=== PATIENT | female | born 1975 | race Caucasian/White ===

== ENCOUNTER 2017-04-04 14:19 | Emergency (ER) | payer OTHER ==
[~2017-04-04] VITALS: Ht 175.3 cm; Wt 64.4 kg
[~2017-04-04 14:19] MED LIST: ALEV220C2 PO; BACT2CRE TOP; BACT800T5 PO; HIBI4LIQ TOP
[2017-04-04] MEDS ORDERED: AZOTAB2 PO (14:31)
[2017-04-04] MEDS ORDERED: AZO95TAB PO (14:31)
[2017-04-04] MEDS ORDERED: ONDANSETRON 4MG/2ML VIAL (J2405) IV ONE (15:30)
[2017-04-04] MEDS ORDERED: KETOROLAC 30 MG/ML VIAL (J1885) IV ONE (15:30)
[2017-04-04] MEDS ORDERED: NS 1,000 ML IV ONE (15:30)
[2017-04-04 16:27] LABS: BASO % 0.3 % (0.0-1.0); EOS # 0.1 K/mm3 (0.0-0.50); EOS % 0.9 % (0.0-3.0); LARGE UNSTAINED CELL # 0.2 K/mm3 (0.0-0.4); LARGE UNSTAINED CELL % 2.9 % (0.0-4.0); LYMPH % 26.6 % (24.0-44.0); MEAN CORPUSCULAR HEMOGLOBIN 32.7 pg (27.0-33.0); MEAN CORPUSCULAR HGB CONC 33.2 g/dl (32.0-36.5); MEAN CORPUSCULAR VOLUME 98.4 fl (80.0-96.0); MONO # 0.6 K/mm3 (0.0-0.8); MONO % 7.6 % (0.0-5.0); NEUTROPHILS # 4.7 K/mm3 (1.8-7.7); NEUTROPHILS % 61.8 % (36.0-66.0); PLATELET COUNT, AUTOMATED 285 k/mm3 (150-450); RED CELL DISTRIBUTION WIDTH 12.7 % (11.5-14.5); WHITE BLOOD COUNT 7.6 K/mm3 (4.0-10.0)
[2017-04-04 17:02] LABS: ALBUMIN 3.6 GM/DL (3.2-5.2); ALBUMIN/GLOBULIN RATIO 0.92 (1.00-1.93); ALKALINE PHOSPHATASE 100 U/L (45-117); ALT/SGPT 33 U/L (12-78); ANION GAP 6 MEQ/L (8-16); AST/SGOT 43 U/L (15-37); BILIRUBIN,TOTAL 0.3 MG/DL (0.2-1.0); BLOOD UREA NITROGEN 7 MG/DL (7-18); CALCIUM LEVEL 8.7 MG/DL (8.5-10.1); CARBON DIOXIDE LEVEL 29 MEQ/L (21-32); CHLORIDE LEVEL 103 MEQ/L (98-107); CREATININE FOR GFR 0.66 MG/DL (0.55-1.02); GLOMERULAR FILTRATION RATE > 60.0 (>58); GLUCOSE, FASTING 80 MG/DL (70-105); SODIUM LEVEL 138 MEQ/L (136-145); TOTAL PROTEIN 7.5 GM/DL (6.4-8.2)
[2017-04-04] MEDS ORDERED: IBUP600T26 PO (17:29)
[2017-04-04] MEDS ORDERED: BACT800T5 PO (17:29)
[2017-04-04] MEDS ORDERED: cefTRIAXone SOD 1 GM VIAL (J0696) IM ONE (17:30)
[2017-04-04] MEDS ORDERED: cefTRIAXone SOD 1 GM in D5W MINI-BAG PLUS 50 ML IV ONE (17:45)
[2017-04-04 18:00] VITALS: BP 107/74
--- NOTE | 2017-04-04 18:16 | REP ---
CT ABDOMEN AND PELVIS WITHOUT CONTRAST: CT abdomen and pelvis is performed without oral or IV contrast. Sagittal and coronal reconstructions images are performed. Visualized lung bases are clear. The liver, spleen, adrenals, pancreas and kidneys are grossly unremarkable. No renal or ureteral calculus is seen. There is no evidence of hydroureteronephrosis. There is no evidence of adenopathy. There is no abdominal aortic aneurysm. There is no free air free fluid. I do not see bowel wall thickening. There is no evidence of appendicitis. Scattered diverticula are seen of the colon. No pelvic mass is seen. Urinary bladder is not well distended and not well evaluated. IMPRESSION: No acute abnormality detected. No renal or ureteral calculus and no hydroureteronephrosis. No free air or free fluid. No appendicitis. Colonic diverticulosis without evidence of acute diverticulitis. Signed by Isacc Mcmahan MD 04/05/2017 07:56 P
== END 2017-04-04 18:09 | disposition home or self-care (01) ==
LOC: M ED 15:52
DX: N10 Acute pyelonephritis (principal)
CPT/HCPCS: 74176; 80053; 81001; 81025; 83690; 85025; 87088; 87186; 96372; 96374; 96375; 99283; J0696; J1885; J2405

== ENCOUNTER → 2018-01-27 | Outpatient (REF) | payer OTHER ==
[2018-01-27 19:25] LABS: BASO % 0.6 % (0.0-1.0); EOS # 0.1 10^3/uL (0.0-0.50); EOS % 1.4 % (0.0-3.0); HEMATOCRIT 38.1 % (36.0-47.0); HEMOGLOBIN 12.6 g/dl (12.0-16.0); IMMATURE GRANULOCYTE % 0.3 % (0-3.0); LYMPH # 2.4 10^3/uL (1.5-4.5); LYMPH % 32.4 % (24.0-44.0); MEAN CORPUSCULAR HGB CONC 33.1 g/dl (32.0-36.5); MEAN CORPUSCULAR VOLUME 93.8 fl (80.0-96.0); MONO # 0.5 10^3/uL (0.0-0.8); MONO % 7.4 % (0.0-5.0); NEUTROPHILS # 4.2 10^3/uL (1.8-7.7); NEUTROPHILS % 57.9 % (36.0-66.0); PLATELET COUNT, AUTOMATED 317 10^3/uL (150-450); RED BLOOD COUNT 4.06 10^6/uL (4.00-5.40); RED CELL DISTRIBUTION WIDTH 12.8 % (11.5-14.5); WHITE BLOOD COUNT 7.3 10^3/uL (4.0-10.0)
[2018-01-27 19:53] LABS: ESTIMATED AVERAGE GLUCOSE 108 MG/DL (60-110); HEMOGLOBIN A1c 5.4 %; TOTAL 25(OH) VITAMIN D 12.3 NG/ML (30.0-100.0)
[2018-01-27 19:54] LABS: ALBUMIN 4.1 GM/DL (3.2-5.2); ALBUMIN/GLOBULIN RATIO 1.17 (1.00-1.93); ALKALINE PHOSPHATASE 95 U/L (45-117); ALT/SGPT 14 U/L (12-78); ANION GAP 6 MEQ/L (8-16); AST/SGOT 14 U/L (7-37); BILIRUBIN,TOTAL 0.3 MG/DL (0.2-1.0); BLOOD UREA NITROGEN 9 MG/DL (7-18); CALCIUM LEVEL 8.8 MG/DL (8.5-10.1); CARBON DIOXIDE LEVEL 29 MEQ/L (21-32); CHLORIDE LEVEL 105 MEQ/L (98-107); CHOLESTEROL LEVEL 245 MG/DL (<200); CHOLESTEROL RISK RATIO 4.454 (<5); GLOMERULAR FILTRATION RATE > 60.0 (>58); GLUCOSE, FASTING 86 MG/DL (70-100); HDL CHOLESTEROL 55 MG/DL (>40); LDL CHOLESTEROL 163.6 MG/DL (<100); NON-HDL-C 190 MG/DL; POTASSIUM SERUM 3.6 MEQ/L (3.5-5.1); SODIUM LEVEL 140 MEQ/L (136-145); TOTAL PROTEIN 7.6 GM/DL (6.4-8.2); TRIGLYCERIDES LEVEL 132 MG/DL (<150)
[2018-01-29 11:05] LABS: HIV 1&2 SCREEN CENTAUR NEGATIVE (NEGATIVE)
[2018-01-29 13:05] LABS: HEPATITIS C VIRUS ABY INDEX 0.1 INDEX (<0.8)
== END ==
LOC: M LAB REF 17:15
DX: Z13.9 Encounter for screening, unspecified (principal)

== ENCOUNTER 2020-12-09 23:18 | Emergency (ER) | payer MEDICAID, OTHER ==
[~2020-12-09] VITALS: Ht 175.3 cm; Wt 69.1 kg
[~2020-12-09 23:18] MED LIST changes: +AZO95TAB PO; +AZOTAB2 PO; +IBUP-1022 PO
--- OUTSIDE RECORDS SUMMARY | 2020-12-09 23:22 | CCD ---
Author Author [facility] Organization [facility] Address Unknown Phone Unavailable Care Team Providers Care Hvac Mechanical Engineer Name Role Phone ALBERT ALFARO Unavailable Unavailable LETTIERENicko Unavailable Unavailable LETTIERENicko Unavailable Unavailable LETTIERENicko Unavailable Unavailable LETTIERENicko Unavailable Unavailable LETTIERE, Nicko ELIZABETH Unavailable Unavailable LETTIERE, A JONN PA Unavailable Unavailable LETTIERE, A JONN PA Unavailable Unavailable LETTIERE, A JONN PA Unavailable Unavailable LETTIERE, A JONN PA Unavailable Unavailable LETTIERE, A JONN PA Unavailable Unavailable LETTIERE, A JONN PA Unavailable Unavailable LETTIERE, A JONN PA Unavailable Unavailable LETTIERE, A JONN PA Unavailable Unavailable LETTIERE, A JONN PA Unavailable Unavailable LETTIERE, A JONN PA Unavailable Unavailable LETTIERE, A JONN PA Unavailable Unavailable LETTIERE, A JONN PA Unavailable Unavailable LETTIERE, A JONN PA Unavailable Unavailable LETTIERE, A JONN PA Unavailable Unavailable LETTIERE, A JONN PA Unavailable Unavailable LETTIERE, A JONN PA Unavailable Unavailable LETTIERE, A JONN PA Unavailable Unavailable LETTIERE, A JONN PA Unavailable Unavailable LETTIERE, A JONN PA Unavailable Unavailable LETTIERE, A JONN PA Unavailable Unavailable LETTIERE, A JONN PA Unavailable Unavailable LETTIERE, A JONN PA Unavailable Unavailable LETTIERE, A JONN PA Unavailable Unavailable LETTIERE, A JONN PA Unavailable Unavailable Re-disclosure Warning The records that you are about to access may contain information from federally-assisted alcohol or drug abuse programs. If such information is present, then the following federally mandated warning applies: This information has been disclosed to you from records protected by federal confidentiality rules (42 CFR part 2). The federal rules prohibit you from making any further disclosure of this information unless further disclosure is expressly permitted by the written consent of the person to whom it pertains or as otherwise permitted by 42 CFR part 2. A general authorization for the release of medical or other information is NOT sufficient for this purpose. The Federal rules restrict any use of the information to criminally investigate or prosecute any alcohol or drug abuse patient.The records that you are about to access may contain highly sensitive health information, the redisclosure of which is protected by Article 27-F of the [facility] Public Health law. If you continue you may have access to information: Regarding HIV / AIDS; Provided by facilities licensed or operated by the [facility] Office of Mental Health; or Provided by the [facility] Office for People With Developmental Disabilities. If such information is present, then the following [facility] mandated warning applies: This information has been disclosed to you from confidential records which are protected by state law. State law prohibits you from making any further disclosure of this information without the specific written consent of the person to whom it pertains, or as otherwise permitted by law. Any unauthorized further disclosure in violation of state law may result in a fine or longterm sentence or both. A general authorization for the release of medical or other information is NOT sufficient authorization for further disc losure. Family History Family Member Name Family Member Gender Family Member Status Date o f Status Description Data Source(s) Unknown Unknown Problem [facility] ([facility] Encounters Encounter Providers Location Date Indications Data Source(s ) Outpatient Attender: JONN Harrsi harshad 06/08/2020 03:20:00 PM EDT [facility] ([facility] Outpatient Attender: ALBERT NGUYEN FP 05/03/2020 07:36:10 PM EDT [facility] Medications Medication Brand Name Start Date Product Form Dose Route Admi nistrative Instructions Pharmacy Instructions Status Indications Reaction Description Data Source(s) PPD- TB Intradermal Test 06/08/2020 12:00:00 AM EDT completed MEDENT ([facility]) Medication administered onsite Insurance Providers Payer name Policy type / Coverage type Policy ID Covered democrat ID Covered democrat's relationship to mayers Policy Mayers Plan Information [facility] [id number] SP [id number] [facility] Care [facility] P [id number] S [id number] Medicaid S [id number] S [id number] Managed Care [facility] Plan [facility] P [id number] S [id number] [facility] [id number] SP [id number] [facility] Care [facility] P [id number] S [id number] Medicaid S [id number] S [id number] [facility](MCAID) O [id number] S [id number] [facility] Community Plan Health Maintenance Organization (HMO) Self Managed Care - [facility] P [id number] S [id number] Medicaid S [id number] S [id number] [facility] [id number] SP [id number] Managed Care - [facility] P [id number] S [id number] Medicaid S [id number] S [id number] [facility] MATTRESS SPECIALIST DEP [id number] SP [id number] MEDICAID [id number] SP [id number] Vital Signs ID Date Data Source UNK Name Value Range Interpretation Code Description Data Source(s) Oxygen saturation in Arterial blood by Pulse oximetry 96 % 96 % [facility] ([facility]) Respiratory rate 16 /min 16 /min [facility] ( [facility]) Heart rate 84 /min 84 /min [facility] ([facility]) Diastolic blood pressure 85 mm[Hg] 85 mm[Hg] [facility] ([facility]) Systolic blood pressure 132 mm[Hg] 132 mm[Hg] [facility]) Body mass index (BMI) [Ratio] 22.7 kg/m2 22.7 k g/m2 [facility] ([facility]) Body height 69 [in_i] 69 [in_i] [facility] ([facility]) 5'9" Body weight 154.00 [lb_av] 154.00 [lb_av] [facility] ([facility]) Body temperature 98.2 [degF] 98.2 [degF] [facility] ([facility])
[2020-12-09] MEDS ORDERED: NS 1,000 ML IV ONE (23:45)
[2020-12-10] MEDS ORDERED: KETOROLAC 30 MG/ML 1ML VIAL IV ONE (00:15)
--- NOTE | 2020-12-10 00:17 | REPVR ---
PROCEDURE INFORMATION: Exam: CT Abdomen And Pelvis Without Contrast Exam date and time: 12/09/2020 11:40 PM Age: 45 years old Clinical indication: Abdominal pain; Flank; Left; Additional info: L flank pain TECHNIQUE: Imaging protocol: Computed tomography of the abdomen and pelvis without contrast. Radiation optimization: All CT scans at this facility use at least one of these dose optimization techniques: automated exposure control; mA and/or kV adjustment per patient size (includes targeted exams where dose is matched to clinical indication); or iterative reconstruction. COMPARISON: CT ABD PELVIS W/O CONTRAST 04/04/2017 4:22 PM FINDINGS: Liver: Normal. No mass. Gallbladder and bile ducts: Normal. No calcified stones. No ductal dilation. Pancreas: Normal. No ductal dilation. Spleen: Normal. No splenomegaly. Adrenal glands: Normal. No mass. Kidneys and ureters: There is mild increased attenuation in the left renal fossa. No renal masses are seen. Punctate calyceal stone in the left kidney. No other urinary tract calculi or hydronephrosis. Stomach and bowel: There is colonic diverticulosis without evidence of diverticulitis. The small bowel is unremarkable. Appendix: No evidence of appendicitis. Intraperitoneal space: Unremarkable. No free air. No significant fluid collection. Vasculature: Unremarkable. No abdominal aortic aneurysm. Lymph nodes: Unremarkable. No enlarged lymph nodes. Urinary bladder: Unremarkable as visualized. Reproductive: Unremarkable as visualized. Bones/joints: Mild degenerative spondylosis at L5-S1. Soft tissues: Unremarkable. IMPRESSION: 1. Mild left perinephric edema may indicate upper urinary tract infection or pyelonephritis but is not specific. 2. Punctate calyceal stone in the left kidney. No other urinary tract calculi or hydronephrosis. 3. Colonic diverticulosis without evidence of diverticulitis. COMMENTS: Consistent with the [employer]'s Incidental Findings Committee white paper (J Am Darrion Radiol 2018): Any incidental renal lesion less than 1 cm or classified as too small to characterize, or any incidental cystic renal lesion characterized as simple-appearing, is likely benign. No follow-up imaging is recommended for these lesions per consensus recommendations based on imaging criteria. Electronically signed by: Harry Parra On 12/10/2020 00:17:49 AM
[2020-12-10 00:19] LABS: BASO % 0.3 % (0.0-1.0); EOS # 0.1 10^3/uL (0.0-0.5); EOS % 0.9 % (0.0-3.0); HEMATOCRIT 35.3 % (36.0-47.0); HEMOGLOBIN 11.2 g/dl (12.0-15.5); LYMPH # 1.6 10^3/uL (1.5-5.0); LYMPH % 18.3 % (24.0-44.0); MEAN CORPUSCULAR HEMOGLOBIN 30.9 pg (27.0-33.0); MEAN CORPUSCULAR HGB CONC 31.7 g/dl (32.0-36.5); MEAN CORPUSCULAR VOLUME 97.5 fl (80.0-96.0); MONO # 1.6 10^3/uL (0.0-0.8); MONO % 18.7 % (0.0-5.0); NEUTROPHILS # 5.3 10^3/uL (1.5-8.5); NEUTROPHILS % 61.6 % (36.0-66.0); PLATELET COUNT, AUTOMATED 295 10^3/uL (150-450); RED BLOOD COUNT 3.62 10^6/uL (4.00-5.40); WHITE BLOOD COUNT 8.6 10^3/uL (4.0-10.0)
[2020-12-10 00:38] LABS: ALBUMIN 3.1 GM/DL (3.2-5.2); BILIRUBIN,DIRECT 0.1 MG/DL (0.0-0.2); BILIRUBIN,TOTAL 0.3 MG/DL (0.2-1.0); TOTAL PROTEIN 6.6 GM/DL (6.4-8.2)
--- OUTSIDE RECORDS SUMMARY | 2020-12-10 00:44 | CCD ---
Author Author [facility] Organization [facility] Address Unknown Phone Unavailable Care Team Providers Care Spout Worker Name Role Phone ALBERT ALFARO Unavailable Unavailable LETTIERENicko Unavailable Unavailable LETTIERENicko PA Unavailable Unavailable LETTIERENicko PA Unavailable Unavailable LETTIERENicko PA Unavailable Unavailable LETTIERE, A JONN ELIZABETH Unavailable Unavailable LETTIERE, Nicko ELIZABETH Unavailable Unavailable [...] is protected by Article 27-F of the [facility] Public Health law. If you continue you may have access to information: Regarding HIV / AIDS; Provided by facilities licensed or operated by the [facility] Office of Mental Health; or Provided by the [facility] Office for People With Developmental Disabilities. If such information is present, then the following [facility] mandated warning applies: This information has been [...] law may result in a fine or prison sentence or both. A general authorization for the release of medical or other information is NOT sufficient authorization for further disc losure. Family History Family Member Name Family Member Gender Family Member Status Date o f Status Description Data Source(s) Unknown Unknown Problem [facility] ([facility]) Encounters Encounter Providers Location Date Indications Data Source(s ) Outpatient Attender: JONN Harris harshad 06/08/2020 03:20:00 PM EDT [facility] ([facility]) Outpatient Attender: ALBERT NGUYEN FP 05/03/2020 07:36:10 PM EDT [facility] Medications Medication Brand Name Start Date Product Form Dose Route Admi nistrative Instructions Pharmacy Instructions Status Indications Reaction Description Data Source(s) PPD- TB Intradermal Test 06/08/2020 12:00:00 AM EDT completed [facility] ([facility]) Medication administered onsite Insurance Providers Payer name Policy type / Coverage type Policy ID Covered democrat ID Covered democrat's relationship to mayers Policy Mayers Plan Information [facility] [id number] SP [id number] [facility] Care [facility] P [id number] S [id number] Medicaid S [id number] S [id number] Managed Care [facility] Plan [facility] P [id number] S [id number] [facility] [id number] SP [id number] [facility] Care [facility] P [id number] S [id number] Medicaid S [id number] S [id number] [facility](MCAID) O [id number] S [id number] [facility] Community [facility] Health Maintenance Organization (HMO) Self Managed Care - [facility] P [id number] S [id number] Medicaid S [id number] S [id number] [facility] [id number] SP [id number] Managed Care - [facility] P [id number] S [id number] Medicaid S [id number] S [id number] [facility] MANAGER SOCIAL DEP [id number] SP [id number] MEDICAID [id number] SP [id number] Vital Signs ID Date Data Source UNK Name Value Range Interpretation Code Description Data Source(s) Oxygen saturation in Arterial blood by Pulse oximetry 96 % 96 % [facility] ([facility]) Respiratory rate 16 /min 16 /min [facility] ( [facility]) Heart rate 84 /min 84 /min [facility] ([facility]) Diastolic blood pressure 85 mm[Hg] 85 mm[Hg] [facility] ([facility]) Systolic blood pressure 132 mm[Hg] 132 mm[Hg] [facility] ([facility]) Body mass index (BMI) [Ratio] 22.7 kg/m2 22.7 k g/m2 [facility] ([facility]) Body height 69 [in_i] 69 [in_i] [facility] ([facility]) 5'9" Body weight 154.00 [lb_av] 154.00 [lb_av] [facility] ([facility]) Body temperature 98.2 [degF] 98.2 [degF] [facility] ([facility])
[2020-12-10] MEDS ORDERED: cefTRIAXone SOD 1 GM in D5W MINI-BAG PLUS 50 ML IV ONE (01:00)
[2020-12-10] MEDS ORDERED: CIPR-249 PO (01:20)
[2020-12-10 01:23] VITALS: BP 107/64
== END 2020-12-10 01:36 | disposition home or self-care (01) ==
LOC: M ED 23:18
DX: N10 Acute pyelonephritis (principal); N39.0 Urinary tract infection, site not specified; K57.30 Diverticulosis of large intestine without perforation or abscess without bleeding; N20.0 Calculus of kidney; F41.9 Anxiety disorder, unspecified; Z87.448 Personal history of other diseases of urinary system
CPT/HCPCS: 74176; 80047; 80076; 81001; 83690; 85025; 87086; 96365; 96375; 99284; J0696; J1885

== ENCOUNTER 2021-01-17 16:11 | Emergency (ER) | payer MEDICAID ==
[~2021-01-17] VITALS: Ht 175.3 cm; Wt 71.3 kg
[~2021-01-17 16:11] MED LIST changes: +CIPR-249 PO
--- OUTSIDE RECORDS SUMMARY | 2021-01-17 16:19 | CCD ---
Author Author [facility] Organization [facility] Address Unknown Phone Unavailable Care Team Providers Care Protozoologist Name Role Phone ALBERT ALFARO Unavailable Unavailable LETTIERNicko Lugo Unavailable Unavailable LETTIERENicko PA Unavailable Unavailable LETTIERENicko PA Unavailable Unavailable LETTIERENicko Unavailable Unavailable LETTIERE, A JONN ELIZABETH Unavailable Unavailable LETTIERENicko Unavailable Unavailable LETTIERE, A JONN PA Unavailable [...] is protected by Article 27-F of the [facility] Public Health law. If you continue you may have access to information: Regarding HIV / AIDS; Provided by facilities licensed or operated by the [facility] Office of Mental Health; or Provided by the [facility] Office for People With Developmental Disabilities. If such information is present, then the following [facility] mandated warning applies: This information has been [...] law may result in a fine or senior care sentence or both. A general authorization for [...] Harris harshad 06/08/2020 03:20:00 PM EDT [facility] ([facility]) Outpatient Attender: ALBERT NGUYEN FP 05/03/2020 07:36:10 PM EDT [facility] Medications Medication Brand Name Start Date Product Form Dose Route Admi nistrative Instructions Pharmacy Instructions Status Indications Reaction Description Data Source(s) 500 mg 12/10/2020 12:00:00 AM EST tablet 14 TAKE ONE TABLET BY MOUTH TWICE A DAY TAKE ONE TABLET BY MOUTH TWICE A DAY SOLD: 12/10/2020 [employer] PPD- TB Intradermal Test 06/08/2020 12:00:00 AM EDT completed MEDENT ([facility]) Medication administered onsite Insurance Providers Payer name Policy type / Coverage type Policy ID Covered alliance party ID Covered alliance party's relationship to mayers Policy Mayers Plan Information IDANIAHAYLEE [id number] SP [id number] [facility](MCAID) O [id number] S [id number] [facility] PLAN [facility] [id number] SP [id number] Managed Care - [facility] Community Plan P [id number] S [id number] Medicaid S [id number] S [id number] Managed Care - Community Plan [facility] P [id number] S [id number] [facility] PLAN [facility] [id number] SP [id number] Managed Care Community Plan [facility] P [id number] S [id number] Medicaid S [id number] S [id number] [facility] Community Plan Health Maintenance Organization (HMO) Self Managed Care - [facility] P [id number] S [id number] Medicaid S [id number] S [id number] [facility] PLAN [facility] [id number] SP [id number] [facility] P [id number] S [id number] Medicaid S [id number] S [id number] [facility] [id number] SP [id number] MEDICAID [id number] SP [id number] Vital Signs ID Date Data Source UNK Name Value Range Interpretation Code Description Data Source(s) Oxygen saturation in Arterial blood by Pulse oximetry 96 % 96 % [facility] ([facility], [facility]) Respiratory rate 16 /min 16 /min [facility] ( [facility], [facility]) Heart rate 84 /min 84 /min [facility] ([facility], [facility]) Diastolic blood pressure 85 mm[Hg] 85 mm[Hg] [facility] ([facility]) Systolic blood pressure 132 mm[Hg] 132 mm[Hg] [facility] Body mass index (BMI) [Ratio] 22.7 kg/m2 22.7 k g/m2 [facility] ([facility]) Body height 69 [in_i] 69 [in_i] [facility] ([facility]) 5'9" Body weight 154.00 [lb_av] 154.00 [lb_av] MEDEN T ([facility], [facility]) Body temperature 98.2 [degF] 98.2 [degF] [facility] ([facility])
[2021-01-17] MEDS ORDERED: ONDANSETRON 4MG/2ML VIAL IV ONE (17:00)
[2021-01-17] MEDS ORDERED: NS 1,000 ML IV ONE (17:00)
--- OUTSIDE RECORDS SUMMARY | 2021-01-17 17:15 | CCD ---
Author Author [facility] Organization [facility] Address Unknown Phone Unavailable Care Team Providers Care Biology Research Assistant Name Role Phone ALBERT ALFARO Unavailable Unavailable LETTIERENicko Unavailable Unavailable LETTIERENicko Unavailable Unavailable LETTIERENicko Unavailable Unavailable LETTIERENicko Unavailable Unavailable LETTIERE, Nicko ELIZABETH Unavailable Unavailable LETTIERE, Nicko ELIZABETH Unavailable Unavailable LETTIERE, A JONN PA Unavailable Unavailable LETTIERE, A JONN PA Unavailable Unavailable LETTIERE, A JNON PA Unavailable Unavailable LETTIERE, A JONN PA [...] A JONN PA Unavailable Unavailable LETTIERE, A OJNN PA Unavailable Unavailable LETTIERE, A JONN PA [...] is protected by Article 27-F of the [facility] Public Health law. If you continue you may have access to information: Regarding HIV / AIDS; Provided by facilities licensed or operated by the [facility] Office of Mental Health; or Provided by the [facility] Office for People With Developmental Disabilities. If such information is present, then the following [facility] mandated warning applies: This information has been [...] law may result in a fine or half-way sentence or both. A general authorization for [...] Harris harshad 06/08/2020 03:20:00 PM EDT [facility] ([facility]) Outpatient Attender: ALBERT NGUYEN FP 05/03/2020 07:36:10 PM EDT [facility] Medications Medication Brand Name Start Date Product Form Dose Route Admi nistrative Instructions Pharmacy Instructions Status Indications Reaction Description Data Source(s) 500 mg 12/10/2020 12:00:00 AM EST tablet 14 TAKE ONE TABLET BY MOUTH TWICE A DAY TAKE ONE TABLET BY MOUTH TWICE A DAY SOLD: 12/10/2020 [employer] PPD- TB Intradermal Test 06/08/2020 12:00:00 AM EDT completed [facility] ([facility]) Medication administered onsite Insurance Providers Payer name Policy type / Coverage type Policy ID Covered green party ID Covered green party's relationship to mayers Policy Mayers Plan Information IDANIAHAYLEE [id number] SP [id number] [facility](MCAID) O [id number] S [id number] [facility] PLAN [facility] [id number] SP [id number] [facility] Care - [facility] Community Plan P [id number] S [id number] Medicaid S [id number] S [id number] Managed Care - Community Plan [facility] P [id number] S [id number] [facility] PLAN [facility] [id number] SP [id number] Managed Care Community Plan [facility] P [id number] S [id number] Medicaid S [id number] S [id number] [facility] Community Plan Health Maintenance Organization (HMO) Self Managed Care - [facility] P [id number] S [id number] Medicaid S [id number] S [id number] [facility] PLAN [facility] [id number] SP [id number] [facility] Care [facility] P [id number] S [id number] Medicaid S [id number] S [id number] [facility] [id number] SP [id number] MEDICAID [id number] SP [id number] Vital Signs ID Date Data Source UNK Name Value Range Interpretation Code Description Data Source(s) Oxygen saturation in Arterial blood by Pulse oximetry 96 % 96 % [facility] ([facility]) Respiratory rate 16 /min 16 /min [facility] ( [facility], [facility]) Heart rate 84 /min 84 /min [facility] ([facility], [facility]) Diastolic blood pressure 85 mm[Hg] 85 mm[Hg] [facility] ([facility]) Systolic blood pressure 132 mm[Hg] 132 mm[Hg] [facility] Body mass index (BMI) [Ratio] 22.7 kg/m2 22.7 k g/m2 [facility] ([facility]) Body height 69 [in_i] 69 [in_i] [facility] ([facility] 5'9" Body weight 154.00 [lb_av] 154.00 [lb_av] MED[facility] T ([facility], [facility] Body temperature 98.2 [degF] 98.2 [degF] [facility] ([facility])
[2021-01-17 17:41] LABS: HEMATOCRIT 38.4 % (36.0-47.0); HEMOGLOBIN 11.9 g/dl (12.0-15.5); MEAN CORPUSCULAR HEMOGLOBIN 30.4 pg (27.0-33.0); MEAN CORPUSCULAR VOLUME 98.2 fl (80.0-96.0); PLATELET COUNT, AUTOMATED 254 10^3/uL (150-450); RED BLOOD COUNT 3.91 10^6/uL (4.00-5.40); WHITE BLOOD COUNT 3.9 10^3/uL (4.0-10.0)
[2021-01-17] MEDS ORDERED: KETOROLAC 30 MG/ML 1ML VIAL IV ONE (17:45)
[2021-01-17 18:06] LABS: ALBUMIN 3.3 GM/DL (3.2-5.2); ALT/SGPT 42 U/L (12-78); BILIRUBIN,DIRECT < 0.1 MG/DL (0.0-0.2); BILIRUBIN,TOTAL < 0.1 MG/DL (0.2-1.0); TOTAL PROTEIN 6.9 GM/DL (6.4-8.2)
[2021-01-17 18:09] LABS: HCG, SERUM QUALITATIVE NEGATIVE (NEGATIVE)
[2021-01-17 18:27] LABS: ATYPICAL LYMPH 1 % (0-5); BASOPHILS 1 % (0-1); EOSINOPHILS 1 % (0-3); LYMPHOCYTES 36 % (16-44); MONOCYTES 15 % (0-5); NEUTROPHILS 45 % (28-66)
[2021-01-17 18:28] LABS: HYPOCHROMASIA 1+; PLATELET ESTIMATE NORMAL (NORMAL)
[2021-01-17] MEDS ORDERED: IBUP-1022 PO (19:37)
[2021-01-17] MEDS ORDERED: ZOFR4TAB16 PO (19:38)
[2021-01-17 19:48] VITALS: BP 129/84
== END 2021-01-17 19:59 | disposition home or self-care (01) ==
LOC: M ED 16:11
DX: Z11.52 Encounter for screening for COVID-19 (principal); R05 Cough; E86.0 Dehydration; R11.0 Nausea; F17.210 Nicotine dependence, cigarettes, uncomplicated
CPT/HCPCS: 36415; 80047; 80076; 81001; 84703; 85025; 96361; 96374; 96375; 99284; J1885; J2405; U0003

== ENCOUNTER 2021-05-09 23:28 | Emergency (ER) | payer OTHER ==
[~2021-05-09] VITALS: Ht 175.3 cm; Wt 72.9 kg
[~2021-05-09 23:28] MED LIST changes: +ZOFR4TAB16 PO
[2021-05-09 23:29] VITALS: BP 120/82
[2021-05-09] MEDS ORDERED: BUPR150T12 PO (23:36)
[2021-05-09] MEDS ORDERED: CLON-412 PO (23:36)
[2021-05-09 23:53] LABS: URINE PREG TEST NEGATIVE (NEGATIVE)
[2021-05-10] MEDS ORDERED: KETOROLAC 60MG 2ML VIAL IM ONE (02:55)
[2021-05-10] MEDS ORDERED: NAPR-837 PO (02:56)
== END 2021-05-10 03:06 | disposition home or self-care (01) ==
LOC: M ED 23:28
DX: M54.5 Low back pain (principal); Z86.14 Personal history of Methicillin resistant Staphylococcus aureus infection; F17.210 Nicotine dependence, cigarettes, uncomplicated
CPT/HCPCS: 81001; 84703; 96372; 99283; J1885

== ENCOUNTER → 2021-11-08 | Outpatient (REF) | payer OTHER ==
[~2021-11-08] MED LIST changes: +BUPR150T12 PO; +CLON-412 PO; +NAPR-837 PO
== END ==
LOC: M LAB REF 16:50
PROVIDERS: ATTEND Physician Assistant
DX: R05.9 Cough, unspecified (principal)

== ENCOUNTER 2021-11-17 15:21 | Emergency (ER) | payer OTHER ==
[~2021-11-17] VITALS: Ht 175.3 cm; Wt 75.8 kg
[2021-11-17 15:22] VITALS: BP 147/81
[2021-11-17] MEDS ORDERED: BOOSTRIX/ADACEL VACCINE (DIPHTH/PERTUSS/ACELL/TETANUS) 0.5ML SYR IM ONE (15:50)
== END 2021-11-17 17:18 | disposition home or self-care (01) ==
LOC: M ED 15:21
DX: S00.81XA Abrasion of other part of head, initial encounter (principal); S40.211A Abrasion of right shoulder, initial encounter; S40.811A Abrasion of right upper arm, initial encounter; W22.8XXA Striking against or struck by other objects, initial encounter; Y92.018 Other place in single-family (private) house as the place of occurrence of the external cause; F17.210 Nicotine dependence, cigarettes, uncomplicated

== ENCOUNTER 2022-01-22 11:30 | Emergency (ER) | payer OTHER ==
[~2022-01-22] VITALS: Ht 175.3 cm; Wt 70.0 kg
[2022-01-22 12:26] LABS: BASO % 0.3 % (0.0-1.0); EOS # 0.1 10^3/uL (0.0-0.5); EOS % 1.2 % (0.0-3.0); HEMATOCRIT 35.2 % (36.0-47.0); HEMOGLOBIN 11.3 g/dl (12.0-15.5); LYMPH % 20.9 % (24.0-44.0); MEAN CORPUSCULAR HEMOGLOBIN 29.9 pg (27.0-33.0); MEAN CORPUSCULAR HGB CONC 32.1 g/dl (32.0-36.5); MEAN CORPUSCULAR VOLUME 93.1 fl (80.0-96.0); MONO # 1.2 10^3/uL (0.0-0.8); MONO % 12.4 % (2.0-8.0); NEUTROPHILS # 6.3 10^3/uL (1.5-8.5); NEUTROPHILS % 64.9 % (36.0-66.0); PLATELET COUNT, AUTOMATED 279 10^3/uL (150-450); RED BLOOD COUNT 3.78 10^6/uL (4.00-5.40); WHITE BLOOD COUNT 9.7 10^3/uL (4.0-10.0)
[2022-01-22 12:34] LABS: INR 0.86; PROTHROMBIN TIME 12.1 SECONDS (12.7-14.5)
[2022-01-22 12:35] LABS: PARTIAL THROMBOPLASTIN TIME 30.9 SECONDS (25.9-37.0)
[2022-01-22 12:48] LABS: CK-MB VALUE MASS < 1.0 NG/ML (<3.6); CPK CREATINE PHOSPHOKINASE 73 U/L (26-192); MB/CK RELATIVE INDEX 1.37 (< OR =4)
[2022-01-22 12:52] LABS: ALBUMIN 3.4 GM/DL (3.2-5.2); ALT/SGPT 13 U/L (12-78); BILIRUBIN,TOTAL 0.3 MG/DL (0.2-1.0); BLOOD UREA NITROGEN 9 MG/DL (7-18); C REACTIVE PROTEIN QUANTITATIV 1.14 MG/DL (0.00-0.30); CALCIUM LEVEL 8.7 MG/DL (8.5-10.1); CARBON DIOXIDE LEVEL 27 MEQ/L (21-32); CHLORIDE LEVEL 108 MEQ/L (98-107); CREATININE FOR GFR 0.68 MG/DL (0.55-1.30); ETHYL ALCOHOL (ETHANOL) < 0.003 % (0.000-0.010); GLOMERULAR FILTRATION RATE > 60.0 (>58); GLUCOSE, FASTING 79 MG/DL (70-100); GLUCOSE,RANDOM 79 MG/DL (LESS THAN 200); MAGNESIUM LEVEL 2.3 MG/DL (1.8-2.4); MYOGLOBIN 45 NG/ML (13-71); PHOSPHORUS LEVEL 2.4 MG/DL (2.5-4.9); POTASSIUM SERUM 3.4 MEQ/L (3.5-5.1); SODIUM LEVEL 138 MEQ/L (136-145); TOTAL PROTEIN 7.3 GM/DL (6.4-8.2)
[2022-01-22 15:13] LABS: MYOGLOBIN SCREEN, URINE NEGATIVE (NEGATIVE)
[2022-01-22 15:15] VITALS: BP 141/76
[2022-01-22 15:46] LABS: AMPHETAMINES LEVEL URINE POSITIVE (NEGATIVE); BARBITURATES URINE NEGATIVE (NEGATIVE); BENZODIAZEPINES URINE NEGATIVE (NEGATIVE); CANNABINOIDS URINE NEGATIVE (NEGATIVE); COCAINE METABOLITE URINE NEGATIVE (NEGATIVE); METHADONE URINE NEGATIVE (NEGATIVE); OPIATES URINE NEGATIVE (NEGATIVE); PHENCYCLIDINE URINE NEGATIVE (NEGATIVE)
== END 2022-01-22 16:00 | disposition home or self-care (01) ==
LOC: M ED 11:30
DX: S93.402A Sprain of unspecified ligament of left ankle, initial encounter (principal); W17.89XA Other fall from one level to another, initial encounter; T59.811A Toxic effect of smoke, accidental (unintentional), initial encounter; X00.0XXA Exposure to flames in uncontrolled fire in building or structure, initial encounter; Y92.018 Other place in single-family (private) house as the place of occurrence of the external cause; F15.10 Other stimulant abuse, uncomplicated; F17.210 Nicotine dependence, cigarettes, uncomplicated

== ENCOUNTER 2022-05-17 11:54 | Emergency (ER) | payer OTHER ==
[~2022-05-17] VITALS: Ht 175.3 cm; Wt 74.6 kg
[~2022-05-17 11:54] MED LIST changes: +RALTEGRAVIR 400 MG TAB (ISENTRESS) PO SCH
[2022-05-17 13:16] LABS: BASO # 0.1 10^3/uL (0.0-0.2); BASO % 0.8 % (0.0-1.0); EOS # 0.1 10^3/uL (0.0-0.5); EOS % 1.3 % (0.0-3.0); HEMATOCRIT 35.7 % (36.0-47.0); HEMOGLOBIN 11.5 g/dl (12.0-15.5); LYMPH # 2.1 10^3/uL (1.5-5.0); LYMPH % 34.3 % (24.0-44.0); MEAN CORPUSCULAR HEMOGLOBIN 30.8 pg (27.0-33.0); MEAN CORPUSCULAR HGB CONC 32.2 g/dl (32.0-36.5); MEAN CORPUSCULAR VOLUME 95.7 fl (80.0-96.0); MONO # 0.6 10^3/uL (0.0-0.8); MONO % 10.2 % (2.0-8.0); NEUTROPHILS # 3.2 10^3/uL (1.5-8.5); NEUTROPHILS % 53.1 % (36.0-66.0); PLATELET COUNT, AUTOMATED 332 10^3/uL (150-450); RED BLOOD COUNT 3.73 10^6/uL (4.00-5.40); WHITE BLOOD COUNT 6.1 10^3/uL (4.0-10.0)
[2022-05-17 14:30] LABS: HCG, SERUM QUALITATIVE NEGATIVE (NEGATIVE)
[2022-05-17 14:32] LABS: ALBUMIN 3.4 GM/DL (3.2-5.2); ALT/SGPT 10 U/L (12-78); BILIRUBIN,TOTAL 0.3 MG/DL (0.2-1.0); BLOOD UREA NITROGEN 8 MG/DL (7-18); CALCIUM LEVEL 8.5 MG/DL (8.5-10.1); CARBON DIOXIDE LEVEL 29 MEQ/L (21-32); CHLORIDE LEVEL 109 MEQ/L (98-107); CREATININE FOR GFR 0.69 MG/DL (0.55-1.30); GLOMERULAR FILTRATION RATE > 60.0 (>58); GLUCOSE, FASTING 85 MG/DL (70-100); POTASSIUM SERUM 4.4 MEQ/L (3.5-5.1); SODIUM LEVEL 142 MEQ/L (136-145); TOTAL PROTEIN 6.7 GM/DL (6.4-8.2)
[2022-05-17] MEDS ORDERED: EMTR1TAB16 PO (14:43)
[2022-05-17] MEDS ORDERED: RALT40TA PO (14:43)
[2022-05-17] MEDS ORDERED: EXPOSURE KIT-ADULT 7 DAY SUPPLY PO ONE (14:45)
[2022-05-17] MEDS ORDERED: ONDA4TAB6 PO (14:48)
[2022-05-17] MEDS ORDERED: TRUVADA 200MG/300MG TABLET PO ONE (14:50)
[2022-05-17] MEDS ORDERED: RALTEGRAVIR 400 MG TAB (ISENTRESS) PO ONE (14:50)
[2022-05-17 15:09] VITALS: BP 137/90
[2022-05-17 17:50] LABS: HEPATITIS B SURFACE ANTIBODY NEGATIVE (POSITIVE)
[2022-05-17 18:00] LABS: HEPATITIS B SURFACE ANTIGEN NEGATIVE (NEGATIVE)
[2022-05-17 18:29] LABS: HEPATITIS C VIRUS ABY INDEX 0.1 INDEX (<0.8); HIV 1&2 SCREEN CENTAUR NEGATIVE (NEGATIVE)
[2022-05-18] MEDS ORDERED: TRUVADA 200MG/300MG TABLET PO SCH
== END 2022-05-17 15:41 | disposition home or self-care (01) ==
LOC: M ED 11:54
DX: S51.831A Puncture wound without foreign body of right forearm, initial encounter (principal); W46.0XXA Contact with hypodermic needle, initial encounter; Y92.89 Other specified places as the place of occurrence of the external cause; Y99.0 Civilian activity done for income or pay; Z79.899 Other long term (current) drug therapy; F17.200 Nicotine dependence, unspecified, uncomplicated

== ENCOUNTER 2022-12-31 00:30 | Emergency (ER) | payer OTHER ==
[~2022-12-31] VITALS: Ht 175.3 cm; Wt 76.1 kg
[~2022-12-31 00:30] MED LIST changes: +EMTR1TAB16 PO; +ONDA4TAB6 PO; +RALT40TA PO; -RALTEGRAVIR 400 MG TAB (ISENTRESS) PO SCH
[2022-12-31 00:31] VITALS: BP 148/85
== END 2022-12-31 01:19 | disposition left against medical advice (07) ==
LOC: M ED 00:30
DX: Z53.21 Procedure and treatment not carried out due to patient leaving prior to being seen by health care provider (principal)

== ENCOUNTER 2023-01-31 15:28 | Emergency (ER) | payer OTHER ==
[~2023-01-31] VITALS: Ht 175.3 cm; Wt 76.1 kg
[2023-01-31] MEDS ORDERED: NAPR-837 PO (18:48)
[2023-01-31 18:57] VITALS: BP 169/89
== END 2023-01-31 19:02 | disposition home or self-care (01) ==
LOC: M ED 15:28
DX: S52.125A Nondisplaced fracture of head of left radius, initial encounter for closed fracture (principal); X58.XXXA Exposure to other specified factors, initial encounter; Y92.89 Other specified places as the place of occurrence of the external cause; Y93.89 Activity, other specified; Y99.8 Other external cause status

== ENCOUNTER → 2023-08-05 | Outpatient (CLI) | payer MEDICAID | LOC: M OUTALCOH 10:23 | PROVIDERS: ATTEND Psychiatry & Neurology Psychiatry | DX: Z03.89 Encounter for observation for other suspected diseases and conditions ruled out (principal) ==

== ENCOUNTER → 2023-10-24 | Outpatient (RCR) | payer MEDICAID | LOC: M OUTALCOH 10-01 16:00 | PROVIDERS: ATTEND Psychiatry & Neurology Psychiatry | DX: F15.20 Other stimulant dependence, uncomplicated (principal); F17.200 Nicotine dependence, unspecified, uncomplicated ==

== ENCOUNTER 2023-11-21 09:00 | Outpatient (RCR) | payer MEDICAID | END 2023-11-24 | LOC: M OUTALCOH 09:00 | PROVIDERS: ATTEND Psychiatry & Neurology Psychiatry | DX: F15.20 Other stimulant dependence, uncomplicated (principal); F17.200 Nicotine dependence, unspecified, uncomplicated ==

== ENCOUNTER 2023-12-23 15:00 | Outpatient (RCR) | payer MEDICAID | END 2023-12-25 | LOC: M OUTALCOH 15:00 | PROVIDERS: ATTEND Psychiatry & Neurology Psychiatry | DX: F15.20 Other stimulant dependence, uncomplicated (principal); F17.200 Nicotine dependence, unspecified, uncomplicated ==

== ENCOUNTER 2024-01-09 14:00 | Outpatient (RCR) | payer MEDICAID | END 2024-01-23 | LOC: M OUTALCOH 14:00 | PROVIDERS: ATTEND Psychiatry & Neurology Psychiatry | DX: F15.20 Other stimulant dependence, uncomplicated (principal); F17.200 Nicotine dependence, unspecified, uncomplicated ==

== ENCOUNTER 2024-02-21 09:30 | Outpatient (RCR) | payer MEDICAID | END 2024-02-23 | LOC: M OUTALCOH 09:30 | PROVIDERS: ATTEND Psychiatry & Neurology Psychiatry | DX: F15.20 Other stimulant dependence, uncomplicated (principal); F17.200 Nicotine dependence, unspecified, uncomplicated | CPT/HCPCS: G0397 ×2 ==

== ENCOUNTER 2024-02-24 23:38 | Emergency (ER) | payer MEDICAID, OTHER ==
[2024-02-24 23:39] VITALS: BP 140/70; TEMP 98.6; O2SAT 97
== END 2024-02-25 03:14 | disposition left against medical advice (07) ==
LOC: M ED 23:38
DX: Z53.21 Procedure and treatment not carried out due to patient leaving prior to being seen by health care provider (principal)

== ENCOUNTER 2024-03-20 08:40 | Outpatient (RCR) | payer MEDICAID | END 2024-03-24 | LOC: M OUTALCOH 08:40 | PROVIDERS: ATTEND Psychiatry & Neurology Psychiatry | DX: F15.20 Other stimulant dependence, uncomplicated (principal); F17.200 Nicotine dependence, unspecified, uncomplicated ==

== ENCOUNTER 2024-04-01 08:40 | Outpatient (RCR) | payer MEDICAID | END 2024-04-24 | LOC: M OUTALCOH 08:40 | PROVIDERS: ATTEND Psychiatry & Neurology Psychiatry | DX: F15.20 Other stimulant dependence, uncomplicated (principal); F17.200 Nicotine dependence, unspecified, uncomplicated ==

== ENCOUNTER → 2024-06-24 | Outpatient (RCR) | payer MEDICAID ==
[~2024-06-24] MED LIST changes: +ONDA-282 PO; -ONDA4TAB6 PO
== END ==
LOC: M OUTALCOH 05-27 10:04
PROVIDERS: ATTEND Psychiatry & Neurology Psychiatry
DX: F15.20 Other stimulant dependence, uncomplicated (principal); F17.200 Nicotine dependence, unspecified, uncomplicated

== ENCOUNTER 2024-07-23 12:00 | Outpatient (RCR) | payer MEDICAID | END 2024-07-25 | LOC: M OUTALCOH 12:00 | PROVIDERS: ATTEND Psychiatry & Neurology Psychiatry | DX: F15.20 Other stimulant dependence, uncomplicated (principal); F17.200 Nicotine dependence, unspecified, uncomplicated ==

== ENCOUNTER → 2024-08-24 | Outpatient (RCR) | payer MEDICAID | LOC: M OUTALCOH 07-29 15:28 | PROVIDERS: ATTEND Psychiatry & Neurology Psychiatry | DX: F15.20 Other stimulant dependence, uncomplicated (principal); F17.200 Nicotine dependence, unspecified, uncomplicated | CPT/HCPCS: G0397 ×2 ==

== ENCOUNTER 2024-09-21 13:00 | Outpatient (RCR) | payer MEDICAID | END 2024-09-24 | LOC: M OUTALCOH 13:00 | PROVIDERS: ATTEND Psychiatry & Neurology Psychiatry | DX: F15.20 Other stimulant dependence, uncomplicated (principal); F17.200 Nicotine dependence, unspecified, uncomplicated ==

== ENCOUNTER → 2024-12-14 | Outpatient (CLI) | payer MEDICAID | LOC: M OUTALCOH 12:28 | PROVIDERS: ATTEND Psychiatry & Neurology Psychiatry | DX: F15.20 Other stimulant dependence, uncomplicated (principal); F17.200 Nicotine dependence, unspecified, uncomplicated ==

== ENCOUNTER 2024-12-30 13:43 | Emergency (ER) | payer MEDICAID, OTHER ==
[~2024-12-30] VITALS: Ht 175.3 cm; Wt 81.1 kg
[2024-12-30] MEDS ORDERED: TRAZ-257 PO (14:01)
[2024-12-30] MEDS ORDERED: ABIL1TAB13 PO (14:01)
[2024-12-30] MEDS ORDERED: LEXA5TAB13 PO (14:01)
[2024-12-30] MEDS: PANTOPRAZOLE 40MG VIAL IV ONE (17:26)
[2024-12-30 17:36] LABS: BASO # 0.1 10^3/uL (0.0-0.2); BASO % 0.9 % (0.0-1.0); EOS # 0.4 10^3/uL (0.0-0.5); EOS % 6.3 % (0.0-3.0); HEMATOCRIT 41.4 % (36.0-47.0); HEMOGLOBIN 13.7 g/dl (12.0-15.5); LYMPH # 1.9 10^3/uL (1.5-5.0); LYMPH % 28.2 % (24.0-44.0); MEAN CORPUSCULAR HEMOGLOBIN 30.9 pg (27.0-33.0); MEAN CORPUSCULAR HGB CONC 33.1 g/dl (32.0-36.5); MEAN CORPUSCULAR VOLUME 93.5 fl (80.0-96.0); MONO # 0.7 10^3/uL (0.0-0.8); MONO % 10.5 % (2.0-8.0); NEUTROPHILS # 3.7 10^3/uL (1.5-8.5); NEUTROPHILS % 53.8 % (36.0-66.0); PLATELET COUNT, AUTOMATED 371 10^3/uL (150-450); RED BLOOD COUNT 4.43 10^6/uL (4.00-5.40); WHITE BLOOD COUNT 6.9 10^3/uL (4.0-10.0)
[2024-12-30 18:02] LABS: LIPASE 206 U/L (12-53)
[2024-12-30 18:03] LABS: CK-MB VALUE MASS < 1.0 NG/ML (<3.6)
[2024-12-30 18:04] LABS: ALBUMIN 3.7 G/DL (3.2-5.2); ALKALINE PHOSPHATASE 125 U/L (35-104); ALT/SGPT 16 U/L (7.0-40); AST/SGOT 22 U/L (<34); BILIRUBIN,DIRECT < 0.1 MG/DL (<0.4); BILIRUBIN,TOTAL 0.3 MG/DL (0.3-1.2); TOTAL PROTEIN 7.8 G/DL (5.7-8.2)
[2024-12-30 18:05] LABS: CPK CREATINE PHOSPHOKINASE 80 U/L (34-145); MB/CK RELATIVE INDEX 1.25 (< OR =4)
[2024-12-30] MEDS ORDERED: ISOVUE-370 76% 100ML VIAL As Ordered ONE (18:07)
[2024-12-30] MEDS ORDERED: NS (Normal Saline) 0.9% 1,000 ML IV ONE (18:40)
[2024-12-30 19:23] VITALS: BP 178/84; TEMP 97.8; O2SAT 98
[2024-12-30] MEDS: KETOROLAC 30 MG/ML 1ML VIAL IV ONE (19:23)
[2024-12-30] MEDS ORDERED: IBUP-1022 PO (19:25)
== END 2024-12-30 19:30 | disposition home or self-care (01) ==
LOC: M ED 13:43
DX: K85.90 Acute pancreatitis without necrosis or infection, unspecified (principal); K57.30 Diverticulosis of large intestine without perforation or abscess without bleeding; Z79.1 Long term (current) use of non-steroidal anti-inflammatories (NSAID); Z79.899 Other long term (current) drug therapy
CPT/HCPCS: 74177; 80047; 80076; 82550; 82553; 83690; 84484; 85025; 93005; 96374; 96375; 99284; J1885; J2470; Q9967

== ENCOUNTER → 2025-01-01 | Outpatient (CLI) | payer OTHER ==
[~2025-01-01] MED LIST changes: +ABIL1TAB13 PO; +LEXA5TAB13 PO; +TRAZ-257 PO
[2025-01-01 16:02] LABS: HEMOGLOBIN A1c 5.4 % (4.0-6.0)
[2025-01-01 16:04] LABS: CHOLESTEROL RISK RATIO 5.29 (<5); HDL CHOLESTEROL 45.5 MG/DL (>40); LDL CHOLESTEROL 175.1 MG/DL (<100); NON-HDL-C 195.5 MG/DL
== END ==
LOC: M PLALAB 11:48
PROVIDERS: ATTEND Family Medicine
DX: K85.90 Acute pancreatitis without necrosis or infection, unspecified (principal)

== ENCOUNTER 2025-01-21 09:00 | Outpatient (RCR) | payer MEDICAID | END 2025-01-22 | LOC: M OUTALCOH 09:00 | PROVIDERS: ATTEND Psychiatry & Neurology Psychiatry | DX: F15.20 Other stimulant dependence, uncomplicated (principal); Z72.0 Tobacco use ==

== ENCOUNTER → 2025-02-15 | Outpatient (CLI) | payer OTHER | LOC: M RAD 06:14 | PROVIDERS: ATTEND Family Medicine | DX: F17.210 Nicotine dependence, cigarettes, uncomplicated (principal); I25.10 Atherosclerotic heart disease of native coronary artery without angina pectoris; I25.84 Coronary atherosclerosis due to calcified coronary lesion ==

== ENCOUNTER 2025-02-18 09:00 | Outpatient (RCR) | payer MEDICAID | END 2025-02-22 | LOC: M OUTALCOH 09:00 | PROVIDERS: ATTEND Psychiatry & Neurology Psychiatry | DX: F15.20 Other stimulant dependence, uncomplicated (principal); Z72.0 Tobacco use ==

== ENCOUNTER 2025-03-22 16:00 | Outpatient (RCR) | payer MEDICAID | END 2025-03-24 | LOC: M OUTALCOH 16:00 | PROVIDERS: ATTEND Psychiatry & Neurology Psychiatry | DX: F15.20 Other stimulant dependence, uncomplicated (principal); Z72.0 Tobacco use ==

== ENCOUNTER 2025-06-16 13:12 | Outpatient (RCR) | payer MEDICAID | END 2025-06-24 | LOC: M OUTALCOH 13:12 | PROVIDERS: ATTEND Psychiatry & Neurology Psychiatry | DX: F15.20 Other stimulant dependence, uncomplicated (principal); Z72.0 Tobacco use ==

== ENCOUNTER 2025-09-13 10:16 | Outpatient (RCR) | payer MEDICAID, OTHER ==
[~2025-09-13 10:16] MED LIST changes: -IBUP-1022 PO; +IBUP600T42 PO
== END 2025-09-24 ==
LOC: M OUTALCOH 10:16
PROVIDERS: ATTEND Psychiatry & Neurology Psychiatry
DX: F15.20 Other stimulant dependence, uncomplicated (principal); F17.200 Nicotine dependence, unspecified, uncomplicated

== ENCOUNTER → 2025-10-15 | Outpatient (CLI) | payer MEDICAID | LOC: M OUTALCOH 07:19 | PROVIDERS: ATTEND Psychiatry & Neurology Psychiatry | DX: F15.20 Other stimulant dependence, uncomplicated (principal); F17.200 Nicotine dependence, unspecified, uncomplicated ==

== ENCOUNTER 2025-10-27 10:56 | Outpatient (RCR) | payer MEDICAID | END 2025-11-24 | LOC: M OUTALCOH 10:56 | PROVIDERS: ATTEND Psychiatry & Neurology Psychiatry | DX: F15.20 Other stimulant dependence, uncomplicated (principal); F17.200 Nicotine dependence, unspecified, uncomplicated ==